=== PATIENT | male | born 1980 | race Two or more races ===

== ENCOUNTER → 2021-11-28 | Emergency (ER) | payer SELFPAY ==
[~2021-11-28] VITALS: Ht 175.3 cm; Wt 77.1 kg
[~2021-11-28] MED LIST: CEPH500T PO; SULF400T11 PO
[2021-11-28 21:59] VITALS: BP 158/90
== END | disposition left against medical advice (07) ==
LOC: ER 22:00
DX: M79.89 Other specified soft tissue disorders (principal); Z53.21 Procedure and treatment not carried out due to patient leaving prior to being seen by health care provider; W26.8XXA Contact with other sharp object(s), not elsewhere classified, initial encounter; Y93.89 Activity, other specified; Y92.89 Other specified places as the place of occurrence of the external cause; Y99.8 Other external cause status

== ENCOUNTER 2021-11-29 06:16 | Emergency (ER) | payer SELFPAY ==
[~2021-11-29] VITALS: Ht 175.3 cm; Wt 77.1 kg
[2021-11-29 07:41] VITALS: BP 149/78
[2021-11-29] MEDS ORDERED: CEPH500T PO (07:41)
[2021-11-29] MEDS ORDERED: SULF400T11 PO (07:41)
== END 2021-11-29 08:35 | disposition home or self-care (01) ==
LOC: ER 06:16
DX: S80.861A Insect bite (nonvenomous), right lower leg, initial encounter (principal); L01.00 Impetigo, unspecified; F17.210 Nicotine dependence, cigarettes, uncomplicated; F12.10 Cannabis abuse, uncomplicated; Z59.00 Homelessness unspecified; W57.XXXA Bitten or stung by nonvenomous insect and other nonvenomous arthropods, initial encounter; Y93.89 Activity, other specified; Y92.89 Other specified places as the place of occurrence of the external cause; Y99.8 Other external cause status